=== PATIENT | female | born 1955 | race Caucasian/White ===

== ENCOUNTER 2020-08-02 19:52 | Inpatient (IN) | payer MEDICARE ==
[~2020-08-02] VITALS: Ht 162.6 cm; Wt 89.8 kg
[~2020-08-02 19:52] MED LIST: ASPIR 8181 MG PO; CELEXA20 MG PO; ERYTHROMYCIN O3.5 GM OU; IBUPROFEN600 MG PO; LOSARTAN-HCTZ1 EACH PO; NORCO 5-325 TA1 EACH PO; PATANOL OP SOLN5 ML EYEBOTH; PERCOCET 10-321 EACH PO; PRAVACHOL40 MG PO; TAMIFLU75 MG PO; TESSALON PERLE100 MG PO
[2020-08-02 20:44] LABS: HEMOGLOBIN 12.8 gm/dl (12.3-15.3); RED BLOOD COUNT 4.04 M/UL (4.00-5.10); WHITE BLOOD COUNT 15.9 K/UL (4.5-11.0)
[2020-08-02 21:02] LABS: BUN/CREATININE RATIO 19 (0-10)
[2020-08-03] MEDS ORDERED: MELOXICAM15 MG PO (03:14)
[2020-08-03] MEDS ORDERED: VITAMIN D21250 MCG PO (03:16)
[2020-08-03 07:14] LABS: HEMOGLOBIN 11.8 gm/dl (12.3-15.3); RED BLOOD COUNT 3.74 M/UL (4.00-5.10); WHITE BLOOD COUNT 16.8 K/UL (4.5-11.0)
[2020-08-03 07:33] LABS: BUN/CREATININE RATIO 17 (0-10)
[2020-08-03] MEDS ORDERED: BUSPIRONE HCL5 MG PO (08:51)
[2020-08-04 04:26] LABS: RED BLOOD COUNT 3.48 M/UL (4.00-5.10); WHITE BLOOD COUNT 15.5 K/UL (4.5-11.0)
[2020-08-04 04:45] LABS: BUN/CREATININE RATIO 13 (0-10)
--- NOTE | 2020-08-04 06:04 | NUR ---
ATTEMPTED TP CALL DR BRYANT ABOUT PT'S POTASSIUM LEVEL, NO ANSWER. ATTEMPTED TO TEXT DR BRYANT AT [phone], NO RESPONSE
[2020-08-05 03:33] LABS: HEMOGLOBIN 10.8 gm/dl (12.3-15.3); RED BLOOD COUNT 3.43 M/UL (4.00-5.10); WHITE BLOOD COUNT 12.8 K/UL (4.5-11.0)
[2020-08-05 04:04] LABS: BUN/CREATININE RATIO 8 (0-10)
[2020-08-05] MEDS ORDERED: LEVOFLOXACIN500 MG PO (11:17)
[2020-08-05] MEDS ORDERED: FLAGYL500 MG PO (11:17)
--- NOTE | 2020-08-05 14:11 | NUR ---
CALLED DR. SON TO OK DISCHARGE HOME. OK FOR DISCHARGE. FOLLOW UP 1 WEEK
--- NOTE | 2020-08-05 14:43 | NUR ---
CALLED DR GUADARRAMA WITH REPEAT POTASSIUM LEVEL 3.4. OK TO D/C HOME.
== END 2020-08-05 15:15 | disposition home or self-care (01) | DRG 392 ==
LOC: ER1 19:52 → MED SURG 4 08-03 00:29 → CDU 08-03 00:29 → MED SURG 4 08-03 02:43
PROVIDERS: Internal Medicine; Physician Assistant Medical; ADMIT Internal Medicine
DX: K57.20 Diverticulitis of large intestine with perforation and abscess without bleeding (principal); F41.9 Anxiety disorder, unspecified; I10 Essential (primary) hypertension; E78.5 Hyperlipidemia, unspecified; Z20.822 Contact with and (suspected) exposure to COVID-19; E87.6 Hypokalemia; E66.9 Obesity, unspecified; Z79.899 Other long term (current) drug therapy; Z79.82 Long term (current) use of aspirin; Z88.5 Allergy status to narcotic agent; Z80.1 Family history of malignant neoplasm of trachea, bronchus and lung; Z80.8 Family history of malignant neoplasm of other organs or systems; Z68.34 Body mass index [BMI] 34.0-34.9, adult
CPT/HCPCS: 36415; 80048; 80053; 81001; 83735; 84132; 85025; 87040; 96365; 96375; 99285; J1650; J1940; J2270; J2543; J7030; U0002

== ENCOUNTER 2021-06-02 20:44 | Emergency (ER) | payer MEDICARE ==
[~2021-06-02 20:44] MED LIST changes: +BUSPIRONE HCL5 MG PO; +FLAGYL500 MG PO; +LEVOFLOXACIN500 MG PO; +MELOXICAM15 MG PO; +VITAMIN D21250 MCG PO
[2021-06-02 23:39] LABS: HEMOGLOBIN 12.3 gm/dl (12.3-15.3); RED BLOOD COUNT 3.92 M/UL (4.00-5.10); WHITE BLOOD COUNT 12.6 K/UL (4.5-11.0)
[2021-06-03 00:13] LABS: BUN/CREATININE RATIO 28 (0-10)
[2021-06-03] MEDS ORDERED: DELSYM30 MG/5 ML PO (03:43)
== END 2021-06-03 04:00 | disposition home or self-care (01) ==
LOC: ER1 20:44
PROVIDERS: Emergency Medicine
DX: R07.89 Other chest pain (principal); I10 Essential (primary) hypertension; E78.5 Hyperlipidemia, unspecified; Z87.891 Personal history of nicotine dependence
CPT/HCPCS: 71045; 80053; 82550; 82553; 84484; 85025; 93005; 99285; J7030